=== PATIENT | female | born 1970 | race Asian ===

== ENCOUNTER → 2024-01-26 08:19 | Outpatient (REF) | payer BC, SELFPAY ==
[2024-01-26 10:05] LABS: % Basophils 1.5 % (0-2); % Eosinophils 5.1 % (0-6); % Immature Granulocytes 0.2 % (0-0.5); % Lymphocytes 39.4 % (20.5-51.1); % Monocytes 6.6 % (1.7-9.3); % Neutrophils 47.2 % (42.2-75.2); Absolute Basophils 0.1 10^3/uL (0-0.2); Absolute Eosinophils 0.2 10^3/uL (0-0.7); Absolute Lymphocytes 1.8 10^3/uL (1.2-3.4); Absolute Monocytes 0.3 10^3/uL (0.1-0.6); Absolute Neutrophils 2.2 10^3/uL (1.4-6.5); Hematocrit 42.3 % (37.0-47.0); Hemoglobin 13.9 g/dL (12.0-16.0); Mean Corp Hgb Conc. 32.9 g/dL (33.0-37.0); Mean Corpuscular Hgb 31.2 pg (27.0-31.0); Mean Corpuscular Volume 94.8 fL (81.0-99.0); Mean Platelet Volume 8.6 fL (7.4-10.4); Nucleated Red Blood Cells % 0 %; Platelet Count 221 10^3/uL (130-400); Red Blood Cell Count 4.46 10^6/uL (4.20-5.40); White Blood Cell Count 4.7 10^3/uL (4.8-10.8)
[2024-01-26 10:33] LABS: ALT (SGPT) 31 U/L (0-35); AST (SGOT) 37 U/L (14-36); Albumin 4.5 g/dl (3.5-5.0); Alkaline Phosphatase 51 U/L (38-126); Blood Urea Nitrogen 18 mg/dl (7-17); Calcium 9.4 mg/dl (8.4-10.2); Carbon Dioxide 31 mmol/L (22-30); Chloride 104 mmol/L (98-107); Glucose 90 mg/dl (70-99); HDL Cholesterol 103 mg/dl; LDL Cholesterol, Calculated 72 mg/dl; Potassium 4.4 mmol/L (3.5-5.1); Sodium 143 mmol/L (135-145); Total Bilirubin 1.1 mg/dl (0.2-1.3); Total Cholesterol 186 mg/dl (50-199); Total Protein 6.9 g/dl (6.3-8.2); Triglyceride 57 mg/dl (10-149); Very Low Density Lipoprotein 11 mg/dl (0-30); eGFR > 60.00
[2024-01-26 10:56] LABS: TSH Reflex To Free T4 0.66 uIU/ml (0.47-4.68)
[2024-01-28 14:51] LABS: Hepatitis C Antibody Negative (Negative)
== END ==
LOC: REG 08:19
PROVIDERS: ATTENDING PHYSICIAN Nurse Practitioner Family
DX: Z13.9 Encounter for screening, unspecified (principal); Z00.00 Encounter for general adult medical examination without abnormal findings
CPT/HCPCS: 36415; 80053; 80061; 84443; 85025; 86803

== ENCOUNTER → 2024-02-10 08:42 | Outpatient (REF) | payer BC, SELFPAY ==
[2024-02-12 10:11] LABS: Bartonella henselae IgG <1:64; Bartonella henselae IgM < 1:16
[2024-02-12 19:12] LABS: Babesia microti IgG < 1:16 (< 1:16); Babesia microti IgM <1:20 (<1:20)
== END ==
LOC: REG 08:42
PROVIDERS: ATTENDING PHYSICIAN Physician Assistant Medical
DX: R53.82 Chronic fatigue, unspecified (principal); M72.2 Plantar fascial fibromatosis
CPT/HCPCS: 36415; 86611; 86618; 86666; 86753

== ENCOUNTER 2024-05-29 06:26 | Day surgery (SDC) | payer BC, SELFPAY | END 2024-05-29 12:08 | disposition home or self-care (01) | LOC: GI 06:26 | PROVIDERS: ATTENDING PHYSICIAN Internal Medicine | DX: Z12.11 Encounter for screening for malignant neoplasm of colon (principal) | CPT/HCPCS: G0121 ==

== ENCOUNTER → 2024-06-15 15:21 | Outpatient (REF) | payer BC, SELFPAY | LOC: WDC 15:21 | PROVIDERS: ATTENDING PHYSICIAN Nurse Practitioner Family | DX: Z12.31 Encounter for screening mammogram for malignant neoplasm of breast (principal) | CPT/HCPCS: 77063; 77067 ==

== ENCOUNTER → 2024-10-12 08:49 | Outpatient (REF) | payer BC, SELFPAY ==
[2024-10-12 10:25] LABS: ALT (SGPT) 32 U/L (0-35); AST (SGOT) 30 U/L (14-36); Albumin 5.1 g/dl (3.5-5.0); Alkaline Phosphatase 45 U/L (38-126); Iron 149 ug/dl (37-170); Total Protein 7.9 g/dl (6.3-8.2)
[2024-10-12 10:34] LABS: Total Iron Binding Capacity 322 ug/dl (265-497)
[2024-10-12 12:14] LABS: Ferritin 54.0 ng/ml (11.1-264.0)
[2024-10-13 22:39] LABS: Transferrin 254 mg/dL (200-360)
== END ==
LOC: REG 08:49
PROVIDERS: ATTENDING PHYSICIAN Surgery; FAMILY PHYSICIAN Nurse Practitioner Family
DX: R94.5 Abnormal results of liver function studies (principal); R53.82 Chronic fatigue, unspecified
CPT/HCPCS: 80076; 82728; 83540; 83550; 84466